=== PATIENT | female | born 1975 | race Caucasian/White ===

== ENCOUNTER 2019-08-26 10:02 | Emergency (ER) | payer OTHER, SELFPAY ==
[2019-08-26 10:25] VITALS: BP 186/99; PULSE 89; RESP 16; TEMP 36.4; O2SAT 100
--- NOTE | 2019-08-26 10:46 | ED.URI ---
HPI - URI/Sore Throat General Chief Complaint: Upper Respiratory Infection Stated Complaint: COUGH/CONGESTION/FEVER/BODY ACHES Time Seen by Provider: 08/26/19 10:46 Source: patient Mode of arrival: ambulatory Limitations: no limitations History of Present Illness HPI Narrative: A 44 y/o female, who is a smoker/nondrinker, presents to with c/o a cough and congestion since Wednesday (5 days ago), after exposure to influenza. Pt does not have an inhaler or nebulizer at home. Pt also c/o N/V/D and notes that the last time she vomited was at 3:30 AM. She reports a bilateral ear fullness/ ache that is worse on the right, a wheeze, and a HAYES. Onset (ago): day(s) (5) Related Data Home Medications Medication Instructions Recorded Confirmed No Home Medications 08/26/19 08/26/19 Allergies Allergy/AdvReac Type Severity Reaction Status Date / Time gabapentin Allergy Unknown Unknown Verified 01/15/19 10:12 Review of Systems Review of Systems: Narrative: The patient has been informed that they may have pre-hypertension or Hypertension based on a BP reading in the department. I recommend that the patient call the primary care provider listed on their discharge instructions or a physician of their choice this week to arrange follow up for further evaluation of possible pre-hypertension or Hypertension General/Constitutional: Denies: weight loss,fever Eyes: Denies: Redness,discharge Ears/Nose/Throat: Reports: bilateral earache that is worse on the right, congestion; Denies: Epistaxis,ear discharge Respiratory: Reports: a cough, wheeze; Denies: Hemoptysis Gastrointestinal: Reports: N/V/D; Denies: Bleeding-rectal Skin: Denies: Lumps, eruption Neurologic: Reports: HAYES; Denies: Focal Weakness,Sz Hematologic: Denies: Petechiae/Purpura Psychiatric: Denies: Suicidal ideation All systems reviewed & are unremarkable except as noted in HPI and below PMFSH Past Medical History Medical History (Updated 08/26/19 @ 11:07 by Amisha Mast) Cervical vertebral fusion Depression HLD (hyperlipidemia) Surgical History Surgical History (Updated 08/26/19 @ 11:07 by Amisha Mast) H/O tubal ligation Social History Social History (Updated 02/08/20 @ 11:07 by Amisha Moore Smoking status: Smoker, status unknown Alcohol intake: never Comments PCP: Dr. Prince At time of signature, agree with nursing past medical, surgical, social and family history. There is no relevant family history pertinent to the presenting complaint Exam Narrative: Exam Narrative: General Appearance: Well appearing, Obese/ Well nourished EYE: PERRLA, Conjunctiva clear Ears: Auditory canal normal, TM normal Nose: Rhinorrhea, Mucousal erythema Mouth/Throat: MM moist, Uvula midline, Pharyngeal erythema Neck: Supple, No adenopathy Respiratory: No respiratory distress, Breath sounds equal, Clear to auscultation Cardiovascular: RRR, No JVD Musculoskeletal: Non tender, Normal strength Skin: Warm, Dry Neurological: A&O x3, CN II-XII intact Psychiatric: Normal mood, Normal affect Course Vital Signs Vital signs: Vital Signs Temperature 97.6 F 08/26/19 10:25 Pulse Rate 89 08/26/19 10:25 Respiratory Rate 16 08/26/19 10:25 Blood Pressure 186/99 H 08/26/19 10:25 Pulse Oximetry 100 08/26/19 10:25 Temperature 97.6 F 08/26/19 10:25 Pulse Rate 89 08/26/19 10:25 Respiratory Rate 16 08/26/19 10:25 Blood Pressure 186/99 H 08/26/19 10:25 Pulse Oximetry 100 08/26/19 10:25 MDM - URI/Sore Throat Lab Data Labs: Influenza A Screen Negative Reference Range: Negative Influenza B Screen Negative Reference Range: Negative Discharge Plan Discharge Clinical Impression: Influenza-like illness Patient Disposition: Home, Self-Care Condition: Stable Instructions: Antibiotic Form, Upper Respiratory Infection (ED) Prescriptions: New promethazine-
== END 2019-08-26 11:10 | disposition home or self-care (01) ==
PROVIDERS: Emergency Provider Emergency Medicine; PCP Family Medicine
DX: R05 Cough (principal); R09.89 Other specified symptoms and signs involving the circulatory and respiratory systems; R50.9 Fever, unspecified; R52 Pain, unspecified; F17.200 Nicotine dependence, unspecified, uncomplicated; E78.5 Hyperlipidemia, unspecified
CPT/HCPCS: 87804; 99213; G0463

== ENCOUNTER 2019-09-17 17:45 | Emergency (ER) | payer OTHER, SELFPAY ==
[2019-09-17 17:53] VITALS: BP 130/87; PULSE 98; RESP 16; TEMP 36.7; O2SAT 100
--- NOTE | 2019-09-17 18:15 | ED.SKABFB ---
HPI - Skin/Abscess/Foreign Bdy General Chief complaint: Skin/Abscess/Foreign Body Stated complaint: pos skin infection Source: patient and RN notes reviewed Mode of arrival: ambulatory Limitations: no limitations History of Present Illness HPI narrative: The obese patient, who is a smoker/nondrinker school clerk, presents with skin eruption. Patient states she has a 3-day history of painful, raised skin eruption along the ant. belt line pannus. No fever, prior/other rashes,AODM, discharge, streaking; symptoms are mild, painful worse with palpation better with elevation or rest Related Data Home Medications Medication Instructions Recorded Confirmed albuterol sulfate INHALATION 09/17/19 hydrochlorothiazide 09/17/19 Allergies Allergy/AdvReac Type Severity Reaction Status Date / Time gabapentin Allergy Unknown Unknown Verified 01/15/19 10:12 Review of Systems Review of Systems: Narrative: General/Constitutional: No weight loss,fever Eyes: N0: Redness,discharge Ears/Nose/Throat: No: Epistaxis,ear discharge Respiratory: Denies: Hemoptysis Gastrointestinal: No Vomiting, Bleeding-rectal Skin: REPORTS lumps, eruption Neurologic: No Focal Weakness,Sz Hematologic: Denies: Petechiae/Purpura Psychiatric: No: Suicida ideationl All Other Systems: Reviewed and Negative [facility] Past Medical History Medical History (Updated 09/17/19 @ 18:08 by Fercho Mitchell MD) Cervical vertebral fusion Depression HLD (hyperlipidemia) Surgical History Surgical History (Updated 08/26/19 @ 11:07 by Amisha Mast) H/O tubal ligation Social History Social History (Updated 08/26/19 @ 11:07 by Amisha Mast) Smoking status: Smoker, status unknown Alcohol intake: never Comments At time of signature, agree with nursing past medical, surgical, social and family history. There is no relevant family history pertinent to the presenting complaint Exam Narrative: Exam Narrative: General Appearance: Obese, Cooperative: Normocephalic Eye: PERRLA, Conjunctiva clear Ear: External ear normal Nose: Normal nose, Nare clear Mouth/Throat: Normal appearing Neck Exam: Supple Respiratory: Airway patent, No respiratory distress GI: Soft, scattered chronic follicular changes along the intertriginous/beltline anterior abdomen Skin: Tender, oval area of induration along the anterior abdomen with scant fluctuance warm, Dry Musculoskeletal: Moves all extremities, Non tender Neurological: A&O x3, Normal affect Course Vital Signs Vital signs: Vital Signs Temperature 98.1 F 09/17/19 17:53 Pulse Rate 98 09/17/19 17:53 Respiratory Rate 16 09/17/19 17:53 Blood Pressure 130/87 09/17/19 17:53 Pulse Oximetry 100 09/17/19 17:53 Temperature 98.1 F 09/17/19 17:53 Pulse Rate 98 09/17/19 17:53 Respiratory Rate 16 09/17/19 17:53 Blood Pressure 130/87 09/17/19 17:53 Pulse Oximetry 100 09/17/19 17:53 Procedures Abscess I/D abdomen: Date of Incision: 09/17/19 Local Anesthetic: other anesthetic (Topical) Technique: needle aspiration Amount of fluid expressed (mL): 3 Irrigation: No Packing used?: none I&D Results: Pus Discharge Plan Discharge Clinical Impression: Abscess of skin or subcutaneous tissue Qualifiers: Site of cutaneous abscess: trunk Site of cutaneous abscess of trunk: abdominal wall Qualified Code(s): L02.211 - Cutaneous abscess of abdominal wall Patient Disposition: Home, Self-Care Condition: Stable Instructions: Antibiotic Form, MRSA (Methicillin-Resistant Staphylococcus Aureus) (ED), Abscess (ED) Prescriptions: New clindamycin HCl 300 mg capsule 300 mg PO Q8H Qty: 21 RF: 0 tramadol 50 mg tablet 50 mg PO TID PRN (Reason: pain) Qty: 15 RF: 0 mupirocin 2 % ointment 1 applic TOPICAL TID Qty: 30 RF: 0 No Action hydrochlorothiazide 25 mg tablet RF: 0 albuterol sulfate 90 mcg/actuation H
--- NOTE | 2019-09-17 18:49 | PC.NURSE ---
EMLA cream not available in the pyxis therefore not administered.
== END 2019-09-17 18:43 | disposition home or self-care (01) ==
PROVIDERS: Emergency Provider Emergency Medicine; PCP Family Medicine
DX: L02.211 Cutaneous abscess of abdominal wall (principal); E78.5 Hyperlipidemia, unspecified
CPT/HCPCS: 10160; 99213; G0463

== ENCOUNTER 2019-10-04 14:02 | Outpatient (CLI) | payer OTHER, SELFPAY ==
--- NOTE | ~2019-10-04 | MM_ITS ---
EXAMINATION: MM screening jackie BI w marge HISTORY: Screening mammogram TECHNIQUE: Craniocaudal and mediolateral oblique 3-D tomosynthesis images were obtained and synthetic 2-D images were generated. CAD analysis was submitted and interpreted. COMPARISON: No prior mammogram is available for comparison at this institution. BREAST PARENCHYMAL COMPOSITION: There are scattered areas of fibroglandular density. FINDINGS: There is no evidence of suspicious mass, calcification, or architectural distortion to sugg est malignancy in either breast. There has been no suspicious interval change. IMPRESSION: 1. No mammographic evidence of malignancy. 2. Recommend routine screening mammography in one year. BI-RADS Category 1: Negative. Reviewed, dictated and finalized at location D.
== END 2019-10-04 14:03 | disposition home or self-care (01) ==
LOC: ANHIMG 14:05
PROVIDERS: PCP Family Medicine; Visit Provider Obstetrics & Gynecology
DX: Z12.31 Encounter for screening mammogram for malignant neoplasm of breast (principal)
CPT/HCPCS: 77063; 77067

== ENCOUNTER 2019-12-12 10:17 | Outpatient (CLI) | payer OTHER, SELFPAY ==
[2019-12-12 11:12] LABS: Basophils Absolute Auto 0.1 K/mm3 (0.0-0.1); Basophils Percent Auto 0.6 % (0.2-1.2); Eosinophils Absolute Auto 0.2 K/mm3 (0-0.3); Hematocrit 45.3 % (37.0-47.0); Hemoglobin 15.8 g/dL (12.0-15.0); Immature Granulocyte Absolute 0.05 K/mm3 (0.00-0.031); Immature Granulocyte Percent A 0.5 % (0-0.5); Lymphocytes Absolute Auto 2.62 K/mm3 (0.9-3.2); Lymphocytes Percent Auto 25.1 % (18.3-44.2); Mean Corpuscular HGB Conc 34.9 g/dl (32-36); Mean Corpuscular Hemoglobin 32.9 pg (26-34); Mean Corpuscular Volume 94.4 fl (80-100); Mean Platelet Volume 10.2 fl (7.4-10.4); Monocytes Absolute Auto 0.9 K/mm3 (0.1-0.6); Monocytes Percent Auto 8.5 % (2.6-8.5); Neutrophils Absolute Auto 6.6 K/mm3 (1.3-6.7); Neutrophils Percent Auto 63.3 % (45.5-73.1); Platelet Count Result 339 k/mm3 (150-375); Red Cell Distribution Width 13.5 % (11.5-14.5); White Blood Count 10.4 K/mm3 (4.5-10.0)
== END 2019-12-12 10:18 | disposition home or self-care (01) ==
LOC: ANHSURGERY 10:20
PROVIDERS: PCP Family Medicine; Visit Provider Obstetrics & Gynecology
DX: Z01.818 Encounter for other preprocedural examination (principal); R10.2 Pelvic and perineal pain
CPT/HCPCS: 36415; 85025; 86850; 86900; 86901

== ENCOUNTER 2019-12-20 00:10 | Outpatient (CLI) | payer OTHER, SELFPAY ==
[2019-12-20 17:43] LABS: SARS-CoV-2 RNA PCR Negative
== END 2019-12-20 00:11 | disposition home or self-care (01) ==
LOC: ANHCOVIDDT 00:10
PROVIDERS: PCP Family Medicine; Visit Provider Obstetrics & Gynecology
DX: Z01.812 Encounter for preprocedural laboratory examination (principal); Z20.828 Contact with and (suspected) exposure to other viral communicable diseases
CPT/HCPCS: 87635; C9803; U0003

== ENCOUNTER 2019-12-22 01:29 | Day surgery (SDC) | payer OTHER, SELFPAY ==
[2019-10-05 15:05] VITALS: BMI 36.2
[2019-12-08 13:34] VITALS: BMI 36.9
--- NOTE | 2019-12-21 07:41 | PM.IMHP ---
H&P: HPI History of Present Illness Chief complaint: Enlarged Uterus,pelvic pain,Dyspareunia,fibroids Narrative: Alba Webber is a 44 year old female 2 para 2 who was admitted for hysterectomy secondary to pelvic pain enlarged uterus and dyspareunia. She had an ultrasound showing multiple uterine fibroids measuring or uterus at about 14 weeks size. Risks and benefits reviewed including not exclusive of , aspiration pneumonia, bleeding, transfusion, perforation injury to bowel, bladder, ureters, or other internal organs with need for open laparotomy. She received the ACOG handout entitled hysterectomy. She received the de Anish handout. She had all questions answered. She asked to proceed Review of Systems Review of Systems: All systems reviewed & are unremarkable except as noted in HPI and below PMFSH Past Medical History Medical History Cervical vertebral fusion Depression HLD (hyperlipidemia) Surgical History Surgical History H/O tubal ligation Social History Social History Smoking status: Smoker, status unknown Alcohol intake: never Meds Home Medications and Allergies Home Medications Medication Instructions Recorded Confirmed Type albuterol sulfate 2 puff INHALATION DIRECTED PRN 09/17/19 12/08/19 History Allergies Allergy/AdvReac Type Severity Reaction Status Date / Time gabapentin AdvReac Unknown Depression Verified 12/08/19 13:26 Exam Const: General: no acute distress Eyes: General: appearance normal, both eyes and all related structures Neck: Neck: supple and no JVD Thyroid: thyroid normal Resp: Effort & Inspection: normal respiratory effort Auscultation: clear to auscultation bilaterally Cardio: Rate: regular rate Rhythm: regular rhythm GI: Inspection: normal to inspection, Pannus present and obesity GI Palp: Yes abdominal tenderness Percussion: Yes normal to percussion Auscultation: normal bowel sounds : General: Yes bladder normal to palpation External Female Exam: normal external appearance Speculum Exam - Vagina: normal appearance of the vagina Speculum Exam - Cervix: Cervical os closed Bimanual exam- vagina & uterus: Cervical tenderness present, boggy and enlarged Bimanual Exam- Adnexa, other: normal adnexae Skin: General skin exam: no rashes or lesions noted Extrem: General: normal to inspection and no edema Psych: Mental Status: mental status grossly normal Affect: normal affect Assessment and Plan Additional Plan Impression: Enlarged uterus with fibroids and dyspareunia Plan: Robotic total vaginal hysterectomy and bilateral salpingectomy.
[2019-12-22] VITALS (17 sets, daily range): BP systolic 122–152; BP diastolic 68–95; PULSE 63–90; RESP 10–21; TEMP 36.4–37.2; O2SAT 92–100
--- NOTE | 2019-12-22 06:33 | WPDHPUPDATE1 ---
History and Physical Update Update Date/Time: 12/22/19 06:33 History and Physical has been reviewed, including an updated exam of the patient. There are NO changes in the patient's condition. Risks, benefits, and alternatives have been discussed and questions answered. Patient agrees to proceed with procedure.
--- NOTE | 2019-12-22 08:16 | WPDANESEPPF ---
Anes - Initial Pre Proc Eval Procedure: Operation Date: 12/22/19 09:30 Proposed Procedures p Robotic Assisted Total Vaginal Hysterectomy with Bilateral Salpingectomy - Speedy Pelaez MD Date/Time: 12/22/19 08:16 Surgeon: Speedy Pelaez MD Pre Op Diagnosis: Enlarged Uterus,pelvic pain,Dyspareunia,fibroids Patient Data Age: 44 Gender: F Height: 5 ft 11 in Weight: 120.2 kg Allergies Allergy/AdvReac Type Severity Reaction Status Date / Time gabapentin AdvReac Unknown Depression Verified 12/08/19 13:26 Home Medications Medication Instructions Recorded Confirmed Type albuterol sulfate 2 puff INHALATION DIRECTED PRN 09/17/19 12/08/19 History hydrocodone-acetaminophen [[place]] 1 tablet PO Q4H PRN #30 tablet 12/22/19 Rx Patient hx anesthesia problems: none Family hx anesthesia problems: none PMFSH Past Medical History Medical History Cervical vertebral fusion Depression HLD (hyperlipidemia) Surgical History Surgical History H/O tubal ligation Social History Social History Smoking status: Smoker, status unknown Alcohol intake: never Anes - Eval Final PreProcedure Day of Procedure 12/22/19 08:16 Patient weight: obese Heart: regular rate and rhythm Lungs: clear to auscultation Airway: Mallampati scale class II Neurological: alert and oriented Last oral intake: >/= 8 hours ASA classification: III Anesthetic plan: proceed Anesthesia type and monitoring: general ETT and standard monitoring Informed Consent: The patient's anesthetic plan and its attendant risks and benefits were discussed with the patient/family/POA. Questions were solicited and answers provided to the satisfaction of the patient/family/POA.
[2019-12-22] MEDS: LACTATED RINGERS 1,000 ML 30 ML IV CONT ×2 (08:49→10:47)
[2019-12-22] MEDS: ceFAZolin 3 GM/D5W 100 ML 100 ML IVPB (10:10)
--- NOTE | 2019-12-22 10:36 | PM.PROC ---
Procedure Note - Detailed Date of procedure: 12/22/19 Pre-op diagnosis: Enlarged Uterus,pelvic pain,Dyspareunia,fibroids Surgeon: Speedy Pelaez MD Postop diagnosis: Enlarged uterus/pelvic pain/dyspareunia/fibroids next Procedure procedure: Robotic total vaginal hysterectomy and bilateral salpingectomy EBL: 25cc Anesthesia: General endotracheal Findings: Enlarged uterus/tubes status post tubal ligation/normal-appearing ovaries Complications: None Description of procedure: Patient was prepped and draped in the normal sterile fashion and placed in this dorsal lithotomy position. Under excellent general endotracheal anesthesia weighted speculum placed in posterior fornix of the vagina. Anterior lip of the cervix grasped with single-tooth tenaculum. The uterus sounded to 11cm. Serial dilatation with fragmented dilators performed followed by passes the 10. ROHAN and the 3. And half cold cup. Next the 16 [place] catheter was placed in the bladder. The remainder the instruments removed. The gloves were changed A supraumbilical incision made in the Veress needle passed in the abdomen. The abdomen was filled with CO2 gas [id number]. The 8mm trocar was advanced in the abdomen. The down site was visualized and no injury seen. The patient placed in Trendelenburg and left and right lateral quadrant incisions made. The 8mm trocars were advanced under direct visualization assuring no injury. A right upper quadrant incision made in the 10mm trocar advanced under direct visualization assuring no injury. The robot was docked Attention was turned to the console. The left round ligament was grasped, burned, cut anterior bladder flap was formed by sharply dissecting the bladder caudally away from the uterus and cervix to the opposite round ligament which was clamped, burned, cut. Next the left and right fallopian tubes were sharply dissected away from the ovaries which appeared within normal limits. The left utero-ovarian ligament was clamped, burned, cut conserving the left ovary until the previous round ligament was reached. In like fashion the utero-ovarian ligament on the right was clamped, burned, cut conserving the right ovary. Next the cardinal and broad ligaments on left were serially skeletonized. They were clamped, burned, cut brought down the lateral edge of the uterus. The uterine vessels were large tortuous these were individually clamped cut. In like fashion the cardinal and broad ligaments on right were serially skeletonized, clamped, burned, cut. The uterine vessels could then be seen in these were individually clamped, burned cut. Excellent blanching uterus was seen. A colpotomy incision was made and the cervix and uterus and tubes removed through the vagina. Blood loss estimated 25cc. The vagina was closed with continuous running 0V lock from lateral edge lateral edge instrument. Irrigation undertaken to clear. All pedicles appeared hemostatic. The robot was undocked. The gas removed from the abdomen. The trocars removed from the abdomen. The incisions closed with 4 O Monocryl and glue. Patient was awakened. She went to recovery in satisfactory condition. All sponge, needle, instrument counts were correct. There were no immediate complications
--- NOTE | 2019-12-22 11:20 | SUR.PHASEI ---
1110 Called pharmacy to inform glo is out of Fentanyl
--- NOTE | 2019-12-22 12:18 | SUR.PHASEI ---
1218 Called and updated pt's sister
--- NOTE | 2019-12-22 13:11 | PC.NURSE ---
1250-This patient, Alba Webber, was admitted to OB 2nd Floor Room 284 via stretcher. Patient oriented to hospital policies and general routines including ID bracelet, bed and alarms, visiting hours, pain management, procedures, bathroom and other care routines, personal items, smoking policy, room service/diet, and visiting hours. Valuables list has been completed. Information on how to activate the Rapid Response Team has been discussed. Patient is encouraged to report perceived risks to care and to ask questions if they do not understand what they are told or what they should do.
[2019-12-22] MEDS: DEXTROSE 5%/LACTATED RINGERS 1,000 ML 125 ML IV CONT (13:35)
[2019-12-22] MEDS: KETOROLAC 30 MG/ML VIAL (*BKC) IV PUSH (13:35)
[2019-12-22] MEDS: DOCUSATE SODIUM 100 MG CAPSULE PO (17:42)
[2019-12-22] MEDS: IBUPROFEN 600 MG TABLET PO (19:32)
[2019-12-23 02:29] VITALS: BP 112/61; PULSE 65; RESP 16; TEMP 36.4; O2SAT 95
[2019-12-23 04:51] LABS: Basophils Absolute Auto 0.1 K/mm3 (0.0-0.1); Basophils Percent Auto 0.2 % (0.2-1.2); Eosinophils Percent Auto 0.2 % (0-4.4); Hematocrit 42.4 % (37.0-47.0); Hemoglobin 14.5 g/dL (12.0-15.0); Immature Granulocyte Absolute 0.17 K/mm3 (0.00-0.031); Immature Granulocyte Percent A 0.8 % (0-0.5); Lymphocytes Absolute Auto 2.11 K/mm3 (0.9-3.2); Lymphocytes Percent Auto 9.6 % (18.3-44.2); Mean Corpuscular HGB Conc 34.2 g/dl (32-36); Mean Corpuscular Hemoglobin 32.9 pg (26-34); Mean Corpuscular Volume 96.1 fl (80-100); Mean Platelet Volume 10.9 fl (7.4-10.4); Monocytes Absolute Auto 1.8 K/mm3 (0.1-0.6); Monocytes Percent Auto 8.3 % (2.6-8.5); Neutrophils Absolute Auto 17.9 K/mm3 (1.3-6.7); Neutrophils Percent Auto 80.9 % (45.5-73.1); Platelet Count Result 297 k/mm3 (150-375); Red Blood Count 4.41 M/mm3 (4.2-5.4); Red Cell Distribution Width 13.9 % (11.5-14.5); White Blood Count 22.1 K/mm3 (4.5-10.0)
[2019-12-23 06:29] VITALS: BP 131/83; PULSE 81; RESP 16; TEMP 37.4; O2SAT 93
--- NOTE | 2019-12-23 07:56 | P.DS_ITS ---
DS: Admitting Diagnosis Admitting Diagnosis Admitting Diagnosis: Hypertrophy of uterus DS: Summary Hospital Course Hospital Course: Alba Webber was admitted after robotic assisted total laparoscopic hysterectomy and bilateral salpingectomy for enlarged uterus, dyspareunia, AUB. The above procedure was performed with no complications. She is doing well post op. She states her pain is well controlled with PO m edications. She reports minimal bleeding. She is ambulating up to the chair. Her alaniz catheter was removed. She is tolerating PO without N/V. She reports passing flatus. Status at Discharge Overall status at discharge: patient is progressing back to baseline Time Spent with Patient Time attestation: Total time spent providing and/or coordinating discharge services: Time spent: Less than 30 minutes Exam Const: General: comfortable and no acute distress Limitations: no limitations Resp: Effort & Inspection: normal respiratory effort Auscultation: clear to auscultation bilaterally Cardio: Rate: regular rate Rhythm: regular rhythm GI: Inspection: non-distended GI Palp: Yes Soft to palpation, Yes Tenderness to palpation present (GI) (milder tenderness to deep palpation) and No Guarding due to palpation present (GI) Auscultation: normal bowel sounds Other: incisions C/D/I covered with dermabond Urinary Catheter: Urinary Catheter: urine clear Skin: General skin exam: normal color Extrem: General: normal to inspection Psych: Mental Status: mental status grossly normal Affect: normal affect DS: Data Data Completed and Pending Pending studies at discharge: Pending at discharge 12/22/19 10:21 Surgical [PTH] Routine Labs on day of discharge: Labs from last 24 hours 12/23/19 03:13 WBC 22.1 H RBC 4.41 Hgb 14.5 Hct 42.4 MCV 96.1 MCH 32.9 MCHC 34.2 RDW 13.9 Plt Count 297 MPV 10.9 H Immature Gran % (Auto) 0.8 H Neut % (Auto) 80.9 H Lymph % (Auto) 9.6 L [place] % (Auto) 8.3 Eos % (Auto) 0.2 Baso % (Auto) 0.2 Lymph # (Auto) 2.11 [place] # (Auto) 1.8 H Eos # (Auto) 0.0 Baso # (Auto) 0.1 Abs Immat Gran (auto) 0.17 H Absolute Neuts (auto) 17.9 H Absolute Nucleated RBC 0.0 Nucleated RBC % 0.0 Discharge Plan Discharge Patient Disposition: Home, Self-Care Patient Instructions: Laparoscopic Hysterectomy (DC) Stand Alone Forms: General Discharge Instructions Follow-up/Referrals: Speedy Pelaez MD [Physician] - Discharge Medications: New hydrocodone-acetaminophen [[place]] 5-325 mg tablet 1 tablet PO Q4H PRN (Reason: pain) Qty: 30 RF: 0 No Action albuterol sulfate 90 mcg/actuation HFA aerosol inhaler 2 puff INHALATION DIRECTED PRN (Reason: Shortness Of Breath) RF: 0 Other Ambulatory Orders: Complete Blood Count with Diff (Routine) Timeframe: 2 Months Location: Determined by Patient Ordered By: Speedy Pelaez Type and Screen 14 Day (Routine) Timeframe: 2 Months Location: Determined by Patient Ordered By: Speedy Pelaez Primary Care Provider: Suresh,Ulices Gibbons Attending physician on admission: Speedy Pelaez
--- NOTE | 2019-12-23 08:09 | WPDANESPN ---
Anes - Prog Note Post-Op Date/Time: 12/23/19 08:09 Cardiovascular status: normal Respiratory status: normal Airway patency: baseline Mental status: baseline Post-Op hydration status: normal Vital Signs: Last Vital Signs Temp 36.4 C L 12/23/19 02:29 Pulse 65 12/23/19 02:29 Resp 16 12/23/19 02:29 BP 112/61 12/23/19 02:29 Pulse Ox 95 12/23/19 02:29 I/O: Intake & Output 12/22/19 12/23/19 12/23/19 23:59 07:59 15:59 Intake Total 1427 860 Output Total 1350 1300 Balance 77 -440 Laboratory Tests 12/23/19 03:13 12/23/19 03:13 WBC 22.1 H RBC 4.41 Hgb 14.5 Hct 42.4 MCV 96.1 MCH 32.9 MCHC 34.2 RDW 13.9 Plt Count 297 MPV 10.9 H Immature Gran % (Auto) 0.8 H Neut % (Auto) 80.9 H Lymph % (Auto) 9.6 L [place] % (Auto) 8.3 Eos % (Auto) 0.2 Baso % (Auto) 0.2 Lymph # (Auto) 2.11 [place] # (Auto) 1.8 H Eos # (Auto) 0.0 Baso # (Auto) 0.1 Abs Immat Gran (auto) 0.17 H Absolute Neuts (auto) 17.9 H Absolute Nucleated RBC 0.0 Nucleated RBC % 0.0 Post-procedural complaints: none Patient Feedback: Patient satisfied with anesthetic care.
[2019-12-23] MEDS: DOCUSATE SODIUM 100 MG CAPSULE PO (09:02)
[2019-12-23] MEDS: IBUPROFEN 600 MG TABLET PO (09:03)
[2019-12-23] MEDS: ENOXAPARIN 40 MG/0.4 ML SYRINGE SUB-Q (09:04)
== END 2019-12-23 10:53 | disposition home or self-care (01) ==
LOC: ANHSURGERY 07:26 → ANHOB2 13:09
PROVIDERS: PCP Family Medicine; Visit Provider Obstetrics & Gynecology
PROC: (CPT 58552; principal; 2019-12-22 09:30)
DX: D25.1 Intramural leiomyoma of uterus (principal); D26.1 Other benign neoplasm of corpus uteri; R10.2 Pelvic and perineal pain; E78.5 Hyperlipidemia, unspecified; F32.9 Major depressive disorder, single episode, unspecified; Z98.1 Arthrodesis status; E66.9 Obesity, unspecified; Z68.36 Body mass index [BMI] 36.0-36.9, adult
CPT/HCPCS: 58552; S2900; 36415; 85025; 88307; 88342; 99199; A9270; J0131; J0330; J0690; J1100; J1650; J1885; J2250; J2405; J2704; J3010; J7030; J7120; J7121

== ENCOUNTER 2020-03-25 09:29 | Emergency (ER) | payer OTHER, SELFPAY ==
[2020-03-25 09:37] VITALS: BP 175/115; PULSE 79; RESP 16; TEMP 36.4; O2SAT 100
--- NOTE | 2020-03-25 10:03 | ED.EAR ---
HPI - Ear Problem General Chief complaint: Ear Stated complaint: sore throat/cough/ear pain Time Seen by Provider: 03/25/20 09:31 History of Present Illness HPI Narrative: The patient, a smoker/nondrinker school speech language pathologist, presents with sore throat. Patient states she has 1/2-week history of right ear discomfort, sore scratchy throat associated with mild cough. No fever measured, foreign travel, loss of taste/smell, vomiting/diarrhea, rash, cough, chest pain, shortness of breath; her son was diagnosed with proven strep pharyngitis. Related Data Home Medications Medication Instructions Recorded Confirmed No Home Medications 03/25/20 03/25/20 Allergies Allergy/AdvReac Type Severity Reaction Status Date / Time gabapentin AdvReac Unknown Depression Verified 03/25/20 10:02 Review of Systems Review of Systems: Narrative: The patient has been informed that they may have pre-hypertension or Hypertension based on a BP reading in the department. I recommend that the patient call the primary care provider listed on their discharge instructions or a physician of their choice this week to arrange follow up for further evaluation of possible pre-hypertension or Hypertension General/Constitutional: No weight loss,fever Eyes: N0: Redness,discharge Ears/Nose/Throat: No: Epistaxis,ear discharge Respiratory: Denies: Hemoptysis Gastrointestinal: No Vomiting, Bleeding-rectal Skin: No Lumps, eruption Neurologic: No Focal Weakness,Sz Hematologic: Denies: Petechiae/Purpura Psychiatric: No: Suicida ideationl All Other Systems: Reviewed and Negative PMFSH Social History Social History Smoking status: Smoker, status unknown Alcohol intake: never Comments At time of signature, agree with nursing past medical, surgical, social and family history. There is no relevant family history pertinent to the presenting complaint Exam Narrative: Exam Narrative: General Appearance: Well appearing, Well nourished EYE: PERRLA, Conjunctiva clear Ears: Auditory canal normal, TM normal inc right Nose: Rhinorrhea, Mucousal erythema Mouth/Throat: MM moist, Uvula midline, Pharyngeal erythema, no exudate Neck: Supple, No adenopathy Respiratory: No respiratory distress, Breath sounds equal, Clear to auscultation Musculoskeletal: Non tender, Normal strength Skin: Warm, Dry Neurological: A&O x3, CN II-XII intact Psychiatric: Normal mood, Normal affect Course Vital Signs Vital signs: Vital Signs Temperature 97.6 F 03/25/20 09:37 Pulse Rate 79 03/25/20 09:37 Respiratory Rate 16 03/25/20 09:37 Blood Pressure 175/115 H 03/25/20 09:37 Pulse Oximetry 100 03/25/20 09:37 Temperature 97.6 F 03/25/20 09:37 Pulse Rate 79 03/25/20 09:37 Respiratory Rate 16 03/25/20 09:37 Blood Pressure 175/115 H 03/25/20 09:37 Pulse Oximetry 100 03/25/20 09:37 Medical Decision Making Vital Signs Vital Signs: Vital Signs Temperature 97.6 F 03/25/20 09:37 Pulse Rate 79 03/25/20 09:37 Respiratory Rate 16 03/25/20 09:37 Blood Pressure 175/115 H 03/25/20 09:37 Pulse Oximetry 100 03/25/20 09:37 Temperature 97.6 F 03/25/20 09:37 Pulse Rate 79 03/25/20 09:37 Respiratory Rate 16 03/25/20 09:37 Blood Pressure 175/115 H 03/25/20 09:37 Pulse Oximetry 100 03/25/20 09:37 Discharge Plan Discharge Clinical Impression: Pharyngitis Qualifiers: Pharyngitis/tonsillitis etiology: unspecified etiology Qualified Code(s): J02.9 - Acute pharyngitis, unspecified Patient Disposition: Home, Self-Care Condition: Stable Instructions: Antibiotic Form, Pharyngitis (ED) Prescriptions: New azithromycin 250 mg tablet See Rx Instructions .ROUTE .COMPLEX Qty: 6 RF: 0 Lidocaine Viscous 2 % solution 5 ml MUCOUS MEM QID PRN (Reason: pain) Qty: 100 RF: 0 No Action No Home Medications RF: 0 Follow-up/Referra
== END 2020-03-25 10:14 | disposition home or self-care (01) ==
PROVIDERS: Emergency Provider Emergency Medicine; PCP Family Medicine
DX: J02.9 Acute pharyngitis, unspecified (principal)
CPT/HCPCS: 99213; G0463

== ENCOUNTER 2020-03-25 10:14 | Outpatient (NON) | payer OTHER, SELFPAY ==
[2020-03-25 19:53] LABS: SARS-CoV-2 RNA PCR Negative
== END 2020-03-25 10:15 ==
PROVIDERS: PCP Family Medicine; Visit Provider Emergency Medicine
DX: J02.9 Acute pharyngitis, unspecified (principal); Z20.828 Contact with and (suspected) exposure to other viral communicable diseases
CPT/HCPCS: 87635; C9803; U0003

== ENCOUNTER 2021-05-22 17:40 | Emergency (ER) | payer OTHER, SELFPAY ==
--- NOTE | ~2021-05-22 | XR_ITS ---
XR chest 2V DATE: 05/22/2021 18:22 INDICATION: Hypertension: 210/119. Headache. Nausea. TECHNIQUE: PA and lateral views COMPARISON: 12/11/2018 PA and lateral chest FINDINGS: Normal heart size. No hilar or mediastinal enlargement. There are calcified azygous lymph n odes, consistent with old granulomatous disease. No pulmonary infiltrate or consolidation, pleural ef fusion or pulmonary vascular congestion or pneumothorax. Status post anterior cervical spine fusion at C6-7. IMPRESSION: No active cardiopulmonary disease Reviewed, dictated and finalized at location A.
[2021-05-22 17:42] VITALS: BP 167/122; PULSE 97; RESP 14; TEMP 36.2; O2SAT 100
--- NOTE | 2021-05-22 17:45 | ECG_ITS ---
Measurements Intervals [place] Rate: 87 P: 37 WV: 147 QRS: 45 QRSD: 107 T: 36 QT: 380 QTc: 458 Interpretive Statements SINUS RHYTHM BORDERLINE T WAVE ABNORMALITY- ANTERIOR LEADS BASELINE ARTIFACT- V6 BORDERLINE ECG Electronically Signed On 05-22-2021 20:32:54 CDT by Carlitos Perkins D.O.
[2021-05-22 18:06] LABS: Basophils Absolute Auto 0.1 K/mm3 (0.0-0.1); Basophils Percent Auto 0.6 % (0.2-1.2); Eosinophils Absolute Auto 0.3 K/mm3 (0-0.3); Eosinophils Percent Auto 2.9 % (0-4.4); Hemoglobin 16.4 g/dL (12.0-15.0); Immature Granulocyte Absolute 0.04 K/mm3 (0.00-0.031); Immature Granulocyte Percent A 0.4 % (0-0.5); Lymphocytes Absolute Auto 2.36 K/mm3 (0.9-3.2); Lymphocytes Percent Auto 24.7 % (18.3-44.2); Mean Corpuscular HGB Conc 34.2 g/dl (32-36); Mean Corpuscular Hemoglobin 34.5 pg (26-34); Mean Corpuscular Volume 100.8 fl (80-100); Mean Platelet Volume 10.1 fl (7.4-10.4); Monocytes Absolute Auto 0.7 K/mm3 (0.1-0.6); Monocytes Percent Auto 7.3 % (2.6-8.5); Neutrophils Absolute Auto 6.1 K/mm3 (1.3-6.7); Neutrophils Percent Auto 64.1 % (45.5-73.1); Platelet Count Result 321 k/mm3 (150-375); Red Blood Count 4.76 M/mm3 (4.2-5.4); Red Cell Distribution Width 13.6 % (11.5-14.5); White Blood Count 9.6 K/mm3 (4.5-10.0)
[2021-05-22 18:18] LABS: Anion Gap 12 mmol/L (8-16); Blood Urea Nitrogen 9 mg/dL (7-17); Calcium 9.8 mg/dL (8.4-10.2); Carbon Dioxide 24 mmol/L (22-30); Chloride 109 mmol/L (98-107); Estimated CRCL calculation 119 ml/min; Estimated Glomerular Filt Rate > 60; Glucose 108 mg/dL (65-110); Potassium 3.7 mmol/L (3.4-5.0); Sodium 145 mmol/L (137-145)
[2021-05-22 18:28] LABS: INR 0.8; Prothrombin Time 11.2 Seconds (11.1-14.7)
[2021-05-22 18:29] LABS: Partial Thromboplastin Time 28.9 SECONDS (22.3-36.8)
[2021-05-22 18:31] LABS: Troponin I < 0.012 ng/mL (0.000-0.034)
[2021-05-22 19:27] VITALS: BP 144/96; PULSE 87; RESP 16; O2SAT 95
--- NOTE | 2021-05-22 20:16 | ED.GENADULT ---
HPI - General Adult General Chief complaint: Recheck/Abnormal Lab/Rx Stated complaint: high blood pressure Time Seen by Provider: 05/22/21 18:49 History of Present Illness HPI narrative: Patient is a 46-year-old female who presents ER with concerns of elevated blood pressure. She had a work physical earlier in the week that showed elevated blood pressures in the 200s. She had a similar blood pressure at her primary care doctor's office who recommended she come here. Patient reports she is anxious about this which is her headache and some mild chest pain. Chest pain has not been persistent over the last week only present today. No radiation. No exertional component. Patient used to take medication for hypertension but has not been on it for several years. Related Data Allergies Allergy/AdvReac Type Severity Reaction Status Date / Time gabapentin AdvReac Unknown Depression Verified 05/22/21 18:50 Review of Systems Review of Systems: All systems reviewed & are unremarkable except as noted in HPI and below Constitutional: Constitutional: Denies chills, Denies fever(s) and Denies weakness ENT: Denies nasal congestion and Denies sore throat Cardiovascular: Cardiovascular: Reports chest pain, Denies rapid heart rate and Denies radiating jaw, neck or arm pain Respiratory: Respiratory: Denies cough, Denies dyspnea and Denies wheezing Gastrointestinal: Gastrointestinal: Denies abdominal pain, Denies nausea and Denies vomiting Neurologic: Reports headache(s), Denies focal weakness and Denies numbness Psychiatric: Psychiatric: Reports anxiety and Denies depression PMFSH Past Medical History Medical History (Updated 05/22/21 @ 20:30 by Jesus Alberto Rocha MD) Cervical vertebral fusion Depression HLD (hyperlipidemia) Hypertension Surgical History Surgical History H/O tubal ligation Social History Social History Smoking status: Smoker, status unknown Alcohol intake: never Exam Narrative: GENERAL: Well-appearing, well-nourished, and in no acute distress. HEAD: Normocephalic, atraumatic. EYES: PERRL and EOMI. CHEST: Clear to auscultation. No respiratory distress. HEART: Regular rate and rhythm. Normal peripheral pulses. ABDOMEN: Soft, nontender, nondistended. EXTREMITIES: Normal range of motion. No edema. SKIN: Warm, dry, no rash. NEURO: Alert and oriented x3. PSYCH: Normal mood and affect. Course Course Emergency Course: Blood pressure between 140 and 160 systolic while in the ER. Will start on HCTZ and recommend fall with PCP. Vital Signs Vital signs: Vital Signs Temperature 97.2 F L 05/22/21 17:42 Pulse Rate 97 05/22/21 17:42 Respiratory Rate 14 05/22/21 17:42 Blood Pressure 167/122 H 05/22/21 17:42 Pulse Oximetry 100 05/22/21 17:42 Temperature 97.2 F L 05/22/21 17:42 Pulse Rate 87 05/22/21 19:27 Respiratory Rate 16 05/22/21 19:27 Blood Pressure 144/96 H 05/22/21 19:27 Pulse Oximetry 95 05/22/21 19:27 Medical Decision Making Vital Signs Vital Signs: Vital Signs Temperature 97.2 F L 05/22/21 17:42 Pulse Rate 97 05/22/21 17:42 Respiratory Rate 14 05/22/21 17:42 Blood Pressure 167/122 H 05/22/21 17:42 Pulse Oximetry 100 05/22/21 17:42 Temperature 97.2 F L 05/22/21 17:42 Pulse Rate 87 05/22/21 19:27 Respiratory Rate 16 05/22/21 19:27 Blood Pressure 144/96 H 05/22/21 19:27 Pulse Oximetry 95 05/22/21 19:27 Lab Data Result diagrams: 05/22/21 17:52 05/22/21 17:52 Labs: Lab Results 05/22/21 05/22/21 05/22/21 Range/Units 17:52 17:52 17:52 WBC 9.6 (4.5-10.0) K/mm3 RBC 4.76 (4.2-5.4) M/mm3 Hgb 16.4 H (12.0-15.0) g/dL Hct 48.0 H (37.0-47.0) % MCV 100.8 H (80-100) fl MCH 34.5 H (26-34) pg MCHC 34.2 (32-36) g/dl RDW 13.6 (11.5-14.5) % Plt Count 321
[2021-05-22 20:25] VITALS: BP 150/88; PULSE 74; RESP 16; O2SAT 98
== END 2021-05-22 20:30 | disposition home or self-care (01) ==
PROVIDERS: Emergency Provider Emergency Medicine; PCP Family Medicine
DX: I10 Essential (primary) hypertension (principal); E78.5 Hyperlipidemia, unspecified; R94.31 Abnormal electrocardiogram [ECG] [EKG]
CPT/HCPCS: 36415; 71046; 80048; 84484; 85025; 85610; 85730; 93005; 99284

== ENCOUNTER 2021-06-14 16:58 | Emergency (ER) | payer OTHER, SELFPAY ==
[2021-06-14 17:05] VITALS: BP 132/85; PULSE 94; RESP 18; TEMP 35.9; O2SAT 100
--- NOTE | 2021-06-14 17:23 | ED.URI ---
HPI - URI/Sore Throat General Chief Complaint: Upper Respiratory Infection Stated Complaint: sinus issues Time Seen by Provider: 06/14/21 17:18 Source: patient, RN notes reviewed and old records reviewed Mode of arrival: ambulatory Limitations: no limitations History of Present Illness HPI Narrative: 46-year-old female who presents to [facility] with complaints of sinus congestion and drainage with facial pressure and frontal congestion for the pat 3 days. Patient voices history of sinus infections in the past and bronchitis, also history of long time history of tobacco use. Patient reports that she has been taking some Tylenol cold and flu and also some nasal decongestant OTC with no improvement in her symptoms. She reports that her cough is productive at times, denies any shortness of breath or any wheezing, no tachypnea noted, able to speak in full sentences. Patient has received COVID vaccinations. MD elicited complaint: cough, rhinorrhea and nasal congestion Pertinent past history: sinusitis and other (bronchitis, tobacco use) Onset (ago): day(s) (3+days) Treatments prior to arrival: cold medicine and other (decongestant) Related Data Home Medications Medication Instructions Recorded Confirmed losartan 06/14/21 Allergies Allergy/AdvReac Type Severity Reaction Status Date / Time gabapentin AdvReac Unknown Depression Verified 05/22/21 18:50 Review of Systems Review of Systems: CONSTITUTIONAL: Denies known fever, chills, or sweats. EYES: Denies visual changes, redness, or discharge. ENT: Positive rhinorrhea, congestion, no sore throat, or otalgia. Positive facial pressure frontal congestion CARDIOVASCULAR: Denies chest pain, palpitations, or edema. RESPIRATORY: Positive cough denies dyspnea. GASTROINTESTINAL: Denies abdominal pain, nausea, vomiting, or diarrhea. GENITOURINARY: Denies dysuria or hematuria. SKIN: Denies rash or itching. MUSCULOSKELETAL: Denies back pain, joint pain, or myalgia. NEUROLOGIC: Frontal headache, no numbness, or weakness. PSYCHIATRIC: Denies anxiety or depression. All systems reviewed & are unremarkable except as noted in HPI and below PMFSH Past Medical History Medical History (Updated 06/14/21 @ 17:55 by Carol Cherry NP) Bronchitis Cervical vertebral fusion Depression HLD (hyperlipidemia) Hypertension Sinusitis, acute Surgical History Surgical History (Updated 06/14/21 @ 17:55 by Carol Cherry NP) H/O cervical spine surgery H/O tubal ligation H/O: hysterectomy Family History Family History (Updated 06/14/21 @ 17:55 by Carol Cherry NP) Mother Diabetes mellitus Hypertension Father Heart disease Social History Social History (Updated 06/14/21 @ 17:56 by Carol Cherry NP) Smoking packs per day: 0.5 Smoking cigarettes per day: 10.0 Years smoked: 30 Smoking pack-years: 15.00 Smoking status: Current every day smoker Tobacco type: cigarettes Alcohol intake: never Substance use: never Living arrangements: with family Gender identity (if verbalized by the patient): Female Comments At time of signature, agree with nursing past medical, surgical, social and family history. There is no relevant family history pertinent to the presenting complaint Exam Narrative: GENERAL: Well-appearing, well-nourished, and in no acute distress. HEAD: Normocephalic, atraumatic. EYES: PERRLA and EOMI. ENT: Nares patent with red turbinates, clear rhinorrhea no epistaxis. Mucous membranes moist.TM's normal with good light reflex, throat red with no lesions or exudates, tonsils enlarged post nasal drainage noted in back of throat. NECK: Supple. No lymphadenopathy CHEST: Clear to auscultation. No respiratory distress. SaO2 100% on room air, no tachypnea or accessory muscle use noted HEART: Regular rate and rhythm. No murmur heard. Normal peripheral pulses. No JVD, no peripheral edema. ABDOMEN: Soft, nontender, nondistended, normal active bowel sound
== END 2021-06-14 17:42 | disposition home or self-care (01) ==
PROVIDERS: Emergency Provider Registered Nurse; PCP Family Medicine
DX: J32.9 Chronic sinusitis, unspecified (principal); R05.9 Cough, unspecified; F17.210 Nicotine dependence, cigarettes, uncomplicated; E78.5 Hyperlipidemia, unspecified; I10 Essential (primary) hypertension
CPT/HCPCS: 99213; G0463

== ENCOUNTER 2021-08-23 11:11 | Emergency (ER) | payer OTHER, SELFPAY ==
--- NOTE | ~2021-08-23 | XR_ITS ---
XR knee RT 3V 08/23/2021 12:14 Indication: Right knee pain Procedure: 3 views right knee Comparison: No prior studies for comparison. Findings: No fracture, subluxation or dislocation. No significant joint effusion. No foreign bodies. Impression: 1: No acute bone or joint abnormality. Reviewed, dictated and finalized at location A. RISK ADVISOR Impression: 1: No acute bone or joint abnormality.
[2021-08-23 11:59] VITALS: BP 159/85; PULSE 82; RESP 16; TEMP 35.9; O2SAT 100
--- NOTE | 2021-08-23 12:01 | ED.EXTPRO ---
HPI - Extremity Problem General Chief complaint: Extremity Problem,Nontraumatic Stated complaint: Right knee pain Time Seen by Provider: 08/23/21 12:02 Source: patient Mode of arrival: ambulatory Limitations: no limitations History of Present Illness HPI Narrative: 46-year-old female presented for complaint of right anterior knee pain for about 4 days. She states she could barely get out of bed this morning. She denies any injury. Denies redness, swelling, lesions, or bruising to the site. She is walking without an assistive device, steady gait. Has been taking Tylenol for pain. History of hypertension. Related Data Home Medications Medication Instructions Recorded Confirmed losartan 06/14/21 Allergies Allergy/AdvReac Type Severity Reaction Status Date / Time gabapentin AdvReac Unknown Depression Verified 05/22/21 18:50 Review of Systems Review of Systems: CONSTITUTIONAL: Denies body aches, fever, chills EYES: Denies visual changes ENT: Denies rhinorrhea, congestion CARDIOVASCULAR: Denies chest pain, palpitations, or edema. RESPIRATORY: Denies cough or dyspnea. GASTROINTESTINAL: Denies abdominal pain, nausea, vomiting, or diarrhea. SKIN: Denies rash, itching, or wounds. MUSCULOSKELETAL: Endorses right knee pain NEUROLOGIC: Denies headache, numbness, tingling, or weakness. PSYCH: Denies depression or anxiety. All systems reviewed & are unremarkable except as noted in HPI and below PMFSH Past Medical History Medical History Bronchitis Cervical vertebral fusion Depression HLD (hyperlipidemia) Hypertension Sinusitis, acute Surgical History Surgical History H/O cervical spine surgery H/O tubal ligation H/O: hysterectomy Family History Family History Mother Diabetes mellitus Hypertension Father Heart disease Social History Social History Smoking packs per day: 0.5 Smoking cigarettes per day: 10.0 Years smoked: 30 Smoking pack-years: 15.00 Smoking status: Current every day smoker Tobacco type: cigarettes Alcohol intake: never Substance use: never Gender identity (if verbalized by the patient): Female Comments At time of signature, I have reviewed and agree with nursing past medical, surgical, social and family history unless otherwise noted. Please see nursing chart for further information. There is no relevant family history pertinent to the presenting complaint Exam Narrative: GENERAL: Well-appearing, well-nourished, and in no acute distress. HEAD: Normocephalic, atraumatic. EYES: PERRLA, conjunctivae clear NECK: Supple. CHEST: Speaks in full sentences. No respiratory distress. HEART: Regular rate and rhythm. Normal and equal peripheral pulses. EXTREMITIES: Right knee has normal strength and sensation, normal range of motion without erythema, edema, or ecchymosis. Normal sensation with sensitivity to light touch and pain. No point tenderness, no obvious deformity, alignment normal. ambulates steady gait. SKIN: Warm, dry, no rash. NEURO: Alert and oriented x3. PSYCH: Normal mood and affect Course Course Emergency Course: Patient is aware of diagnosis, understands and agrees to treatment plan. Anticipatory guidance given. Patient agrees to follow-up as directed and is aware of reasons to seek care at the emergency department. Portions of this record may have been created with voice recognition software Level of Care: Express Care Visit Vital Signs Vital signs: Vital Signs Temperature 96.7 F L 08/23/21 11:59 Pulse Rate 82 08/23/21 11:59 Respiratory Rate 16 08/23/21 11:59 Blood Pressure 159/85 H 08/23/21 11:59 Pulse Oximetry 100 08/23/21 11:59 Temperature 96.7 F L 08/23/21 11:59 Pulse Rate 82 08/23/21 11:59 Res
== END 2021-08-23 12:32 | disposition home or self-care (01) ==
PROVIDERS: Emergency Provider Nurse Practitioner Family
DX: M25.561 Pain in right knee (principal); F17.210 Nicotine dependence, cigarettes, uncomplicated; E78.5 Hyperlipidemia, unspecified; I10 Essential (primary) hypertension
CPT/HCPCS: 73562; 99213; G0463

== ENCOUNTER 2021-12-22 05:12 | Emergency (ER) | payer OTHER, SELFPAY ==
[2021-12-22] VITALS (14 sets, daily range): BP systolic 113–163; BP diastolic 70–101; PULSE 64–80; RESP 12–28; TEMP 36.2; O2SAT 91–100
--- NOTE | ~2021-12-22 | XR_ITS ---
EXAMINATION: XR chest 2V DATE: 12/22/2021 06:42 INDICATION: Cough. TECHNIQUE: Frontal and lateral views of the chest were obtained. COMPARISON: Chest 2 views 05/22/2021 FINDINGS: The chest demonstrates clear lungs without pneumonia, pleural effusion, or pneumothorax. Th e heart size is normal. Calcified mediastinal lymph nodes are consistent with old granulomatous disea se. There are changes of anterior fusion procedure in cervical spine. IMPRESSION: 1. No acute cardiopulmonary disease. Reviewed, dictated and finalized at location A.
[2021-12-22] MEDS: ALBUTEROL SULFATE NEB 2.5 MG/3 ML INH 5 MG INHALATION (05:47)
[2021-12-22] MEDS: IPRATROPIUM BR 0.02% INH SOLN 0.5 MG/2.5 ML VIAL INHALATION (05:47)
[2021-12-22] MEDS: ACETAMINOPHEN 500 MG TABLET 1000 MG PO (05:50)
[2021-12-22] MEDS: KETOROLAC 15 MG/ML VIAL (*BKC) IV PUSH (05:51)
[2021-12-22 05:58] LABS: Basophils Percent Auto 0.4 % (0.2-1.2); Eosinophils Absolute Auto 0.2 K/mm3 (0-0.3); Eosinophils Percent Auto 1.6 % (0-4.4); Hematocrit 43.4 % (37.0-47.0); Hemoglobin 14.5 g/dL (12.0-15.0); Immature Granulocyte Absolute 0.04 K/mm3 (0.00-0.031); Immature Granulocyte Percent A 0.4 % (0-0.5); Lymphocytes Absolute Auto 1.91 K/mm3 (0.9-3.2); Lymphocytes Percent Auto 17.4 % (18.3-44.2); Mean Corpuscular HGB Conc 33.4 g/dl (32-36); Mean Corpuscular Hemoglobin 34.4 pg (26-34); Mean Corpuscular Volume 103.1 fl (80-100); Mean Platelet Volume 10.5 fl (7.4-10.4); Monocytes Absolute Auto 0.8 K/mm3 (0.1-0.6); Monocytes Percent Auto 7.4 % (2.6-8.5); Neutrophils Percent Auto 72.8 % (45.5-73.1); Platelet Count Result 232 k/mm3 (150-375); Red Blood Count 4.21 M/mm3 (4.2-5.4); Red Cell Distribution Width 14.9 % (11.5-14.5)
[2021-12-22 06:07] LABS: Alanine Aminotransferase 83 U/L (6-35); Albumin Level 3.6 g/dL (3.5-5.1); Alkaline Phosphatase 68 U/L (38-126); Anion Gap 1 mmol/L (8-16); Aspartate Amino Transferase 41 U/L (14-36); Bilirubin,Total 0.6 mg/dL (0.2-1.3); Blood Urea Nitrogen 7 mg/dL (7-17); Calcium 8.1 mg/dL (8.4-10.2); Carbon Dioxide 26 mmol/L (22-30); Chloride 109 mmol/L (98-107); Estimated CRCL calculation 155 ml/min; Estimated Glomerular Filt Rate > 60; Glucose 93 mg/dL (65-110); Potassium 3.9 mmol/L (3.4-5.0); Sodium 136 mmol/L (137-145)
[2021-12-22 06:34] LABS: SARS-CoV-2 RNA PCR Negative
--- NOTE | 2021-12-22 07:15 | PC.NURSE ---
BSSR to CAT
--- NOTE | 2021-12-22 07:40 | ED.URI ---
HPI - URI/Sore Throat General Chief Complaint: Upper Respiratory Infection Stated Complaint: cough, congestion Time Seen by Provider: 12/22/21 05:33 Source: patient History of Present Illness HPI Narrative: Patient presents with cough congestion shortness of breath. Reports has had symptoms for the past few weeks. She doctor primary care doctor she has been on a couple courses of antibiotics and steroids and cough suppressants which have not alleviated her symptoms. She had a hard time sleeping so she came to the ER for further evaluation. She has not noted any fevers. For some chest tightness no clear aggravating or alleviating factors there is no radiation of that chest tightness. She has not had any known sick contacts. She has been coughing that she moved into her house so maybe there was some mold. Denies any nausea or vomiting denies any diarrhea or abdominal pain. Related Data Home Medications Medication Instructions Recorded Confirmed losartan 100 mg tablet 06/14/21 Allergies Allergy/AdvReac Type Severity Reaction Status Date / Time gabapentin AdvReac Unknown Depression Verified 05/22/21 18:50 Review of Systems Review of Systems: CONSTITUTIONAL: Denies fever, chills, or sweats. EYES: Denies visual changes, redness, or discharge. ENT: Denies rhinorrhea, congestion, sore throat, or otalgia. CARDIOVASCULAR: Denies chest pain, palpitations, or edema. RESPIRATORY: Cough and shortness of breath GASTROINTESTINAL: Denies abdominal pain, nausea, vomiting, or diarrhea. GENITOURINARY: Denies dysuria or hematuria. SKIN: Denies rash or itching. MUSCULOSKELETAL: Denies back pain, joint pain, or myalgia. NEUROLOGIC: Denies headache, numbness, dizziness, or weakness. PSYCHIATRIC: Denies anxiety or depression. All systems reviewed & are unremarkable except as noted in HPI and below PMFSH Past Medical History Medical History Bronchitis Cervical vertebral fusion Depression HLD (hyperlipidemia) Hypertension Sinusitis, acute Surgical History Surgical History H/O cervical spine surgery H/O tubal ligation H/O: hysterectomy Family History Family History Mother Diabetes mellitus Hypertension Father Heart disease Social History Social History Smoking packs per day: 0.5 Smoking cigarettes per day: 10.0 Years smoked: 30 Smoking pack-years: 15.00 Smoking status: Current every day smoker Tobacco type: cigarettes Alcohol intake: never Substance use: never Gender identity (if verbalized by the patient): Female Exam Narrative: GENERAL: Well-appearing, well-nourished, and in no acute distress. HEAD: Normocephalic, atraumatic. EYES: PERRLA and EOMI. ENT: Nares clear, no rhinorrhea or epistaxis. Mucous membranes moist. NECK: Supple. No masses. No JVD CHEST: Clear to auscultation. No respiratory distress. No wheezes rales or rhonchi HEART: Regular rate and rhythm. No murmur heard. Normal peripheral pulses. ABDOMEN: Soft, nontender, nondistended, normal active bowel sounds. EXTREMITIES: Normal range of motion. No edema. SKIN: Warm, dry, no rash. NEURO: No focal deficits. Alert and oriented x3. PSYCH: Normal mood and affect. Course Reevaluation(s) Reevaluation #1: Patient ports feeling much improved after nebulized therapy results and plan reviewed with patient. Patient is comfortable outpatient plan. Date: 12/22/21 Time: 07:40 Vital Signs Vital signs: Vital Signs Temperature 36.2 C L 12/22/21 05:19 Pulse Rate 80 12/22/21 05:19 Respiratory Rate 16 12/22/21 05:19 Blood Pressure 155/101 H 12/22/21 05:19 Pulse Oximetry 99 12/22/21 05:19 Oxygen Delivery Room Air 12/22/21 05:19 Temperature 36.2 C L 12/22/21 05:19 Pulse Rate 64 12/22/21 06:55 R
== END 2021-12-22 08:00 | disposition home or self-care (01) ==
PROVIDERS: Emergency Provider Emergency Medicine; PCP Family Medicine
DX: J40 Bronchitis, not specified as acute or chronic (principal); Z20.822 Contact with and (suspected) exposure to COVID-19; F17.210 Nicotine dependence, cigarettes, uncomplicated; I10 Essential (primary) hypertension; F32.9 Major depressive disorder, single episode, unspecified; E78.5 Hyperlipidemia, unspecified
CPT/HCPCS: 36415; 71046; 80053; 85025; 94640; 96374; 99284; A9270; C9803; J1885; U0003; U0005

== ENCOUNTER 2023-09-11 19:58 | Emergency (ER) | payer BC, OTHER, SELFPAY ==
[2023-09-11 20:08] VITALS: BP 144/88; PULSE 90; RESP 18; TEMP 36.2; O2SAT 97
--- NOTE | 2023-09-11 21:47 | PC.NURSE ---
PT CALLED FOR ROOM, NO ANSWER
--- NOTE | 2023-09-11 23:39 | PC.NURSE ---
Pt called for room, no answer
== END 2023-09-12 01:49 | disposition left against medical advice (07) ==
LOC: ANHED 23:58
PROVIDERS: PCP Family Medicine
DX: R51.9 Headache, unspecified (principal)
CPT/HCPCS: 99199

== ENCOUNTER 2023-12-22 08:40 | Outpatient (CLI) | payer BC, MEDICAID, SELFPAY ==
[2023-12-22 09:28] LABS: Alanine Aminotransferase 115 U/L (6-35); Albumin Level 4.3 g/dL (3.5-5.1); Alkaline Phosphatase 100 U/L (38-126); Aspartate Amino Transferase 72 U/L (14-36); Bilirubin,Total 0.5 mg/dL (0.2-1.3); Cholesterol 160 mg/dL (0-200); HDL Direct 44 mg/dL; Magnesium 1.7 mg/dL (1.6-2.3); Triglycerides 130 mg/dL (<150)
[2023-12-22 09:42] LABS: LDL Cholesterol Direct 97 mg/dL
[2023-12-22 09:44] LABS: Iron 85 ug/dL (37-170)
[2023-12-22 09:53] LABS: Percent Iron Saturation 26 % (20-50)
[2023-12-22 10:32] LABS: Folic Acid 4.5 ng/mL (2.76->20)
[2023-12-22 10:34] LABS: Hepatitis C Virus Antibody Negative (Negative)
--- NOTE | 2023-12-22 11:00 | NEURO_ITS ---
Impression: # Complains of numbness of feet. Non-diabetic. # Asymmetrical sensory neuropathy of axonal type. # Normal needle/EMG exam. # Clinical correlation recommended. Nerve Conduction Studies Anti Sensory Summary Table Stim Site NR Peak (ms) P-T Amp (?V) Site1 Site2 Delta-P (ms) Dist (cm) Venu (m/s) Left Sup Fibular Anti Sensory (Ant Lat Mall) 14 cm 3.7 8.4 14 cm Ant Lat Mall 3.7 16.0 43 Right Sup Fibular Anti Sensory (Ant Lat Mall) NO RESPONSE 14 cm NR 14 cm Ant Lat Mall 16.0 Left Sural Anti Sensory (Lat Mall) Calf 3.7 17.6 Calf Lat Mall 3.7 16.0 43 Right Sural Anti Sensory (Lat Mall) NO RESPONSE Calf NR Calf Lat Mall 16.0 Motor Summary Table Stim Site NR Onset (ms) O-P Amp (mV) Site1 Site2 Delta-0 (ms) Dist (cm) Venu (m/s) Left Peroneal Motor (Vastus Med) Ankle 4.3 2.0 Popit Ankle 9.5 45.0 47 Popit 13.8 1.0 Right Peroneal Motor (Vastus Med) Ankle 4.1 5.1 Popit Ankle 9.8 43.0 44 Popit 13.9 4.5 Left Tibial Motor (Abd Ko Brev) Ankle 4.2 9.8 Knee Ankle 10.6 47.0 44 Knee 14.8 6.2 Right Tibial Motor (Abd Ko Brev) Ankle 4.6 9.1 Knee Ankle 10.3 46.0 45 Knee 14.9 5.4 F Wave Studies NR F-Lat (ms) L-R F-Lat (ms) Left Peroneal (Mrkrs) (EDB) 53.76 0.86 Right Peroneal (Mrkrs) (EDB) 52.90 0.86 Left Tibial (Mrkrs) (Abd Hallucis) 53.49 0.11 Right Tibial (Mrkrs) (Abd Hallucis) 53.38 0.11 EMG Side Muscle Nerve Root Ins Act Fibs Amp Dur Recrt Comment Right AntTibialis Dp Br Fibular L4-5 Nml Nml Nml Nml Nml Right Gastroc Tibial S1-2 Nml Nml Nml Nml Nml Right Fibularis Long Sup Br Fibular L5-S1 Nml Nml Nml Nml Nml Right Flex Dig Long Tibial L5-S2 Nml Nml Nml Nml Nml Right Ext Dig Brev Dp Br Fibular L5, S1 Nml Nml Nml Nml Nml Left AntTibialis Dp Br Fibular L4-5 Nml Nml Nml Nml Nml Left Gastroc Tibial S1-2 Nml Nml Nml Nml Nml Left Fibularis Long Sup Br Fibular L5-S1 Nml Nml Nml Nml Nml Left Flex Dig Long Tibial L5-S2 Nml Nml Nml Nml Nml Left Ext Dig Brev Dp Br Fibular L5, S1 Nml Nml Nml Nml Nml MTDD
[2023-12-25 10:43] LABS: Vitamin B1 <6 nmol/L (8-30)
== END 2023-12-22 08:41 | disposition home or self-care (01) ==
DX: G62.9 Polyneuropathy, unspecified (principal); R94.5 Abnormal results of liver function studies; R74.8 Abnormal levels of other serum enzymes; Z13.0 Encounter for screening for diseases of the blood and blood-forming organs and certain disorders involving the immune mechanism
CPT/HCPCS: 36415; 80061; 80076; 82607; 82728; 82746; 83540; 83550; 83735; 84207; 84425; 86803; 95886; 95910